=== PATIENT | female | born 1985 | race Caucasian/White ===

== ENCOUNTER 2022-06-25 05:46 | Emergency (ER) | payer SELFPAY ==
[2022-06-25] MEDS ORDERED: LORazepam 1 MG Tab PO ONE (06:07)
[2022-06-25 06:52] LABS: ESTIMATED GFR 97 mL/min (>60)
[2022-06-25] MEDS ORDERED: Cetirizine 10 MG Tab PO ONE (07:40)
== END 2022-06-25 08:36 | disposition home or self-care (01) ==
LOC: JP.ED 05:46
DX: E87.1 Hypo-osmolality and hyponatremia (principal); E87.5 Hyperkalemia; F22 Delusional disorders; R45.1 Restlessness and agitation; F16.980 Hallucinogen use, unspecified with hallucinogen-induced anxiety disorder
CPT/HCPCS: 36415; 80048; 80307; 82803; 84443; 85025; 86140; 99283; 99284; A9270